=== PATIENT | female | born 1990 | race Asian ===

== ENCOUNTER 2020-03-22 01:47 | Inpatient (IN) | payer OTHER ==
[2020-03-22] MEDS ORDERED: ePHEDrine 50 MG/ML SDV IVPUSH PRN (20:22)
[2020-03-22] MEDS ORDERED: Bupivacaine/fentaNYL/NS 100 ML Bag EPIDUR PRN (20:22)
[2020-03-22] MEDS ORDERED: Misoprostol 25 MCG (1/4 of 100 MCG) Tab ONE (20:22)
[2020-03-22] MEDS ORDERED: fentaNYL 100 MCG/2 ML SDV EPIDUR PRN (20:22)
[2020-03-22] MEDS ORDERED: diphenhydrAMINE 50 MG/ML SDV IVPUSH PRN (20:22)
[2020-03-22] MEDS ORDERED: Sodium Chloride 0.9% 10 ML Syringe FLUSH PRN (20:37)
[2020-03-22] MEDS ORDERED: Nalbuphine 10 MG/ML Syringe IVPUSH PRN (20:37)
[2020-03-22] MEDS ORDERED: Ondansetron 4 MG/2 ML SDV IVPUSH PRN (20:37)
[2020-03-22] MEDS ORDERED: Misoprostol 100 MCG Tab VAG PRN (20:37)
--- NOTE | 2020-03-22 20:40 | PCM.LDHP ---
L&D History of Present Illness - General Date of Service: 03/22/20 Admit Problem/Dx: Patient Status Order with Admit Dx/Problem 03/22/20 20:38 Patient Status [ADT] Routine Admission Diagnosis/Problem Admission Diagnosis/Problem Cholestasis during Source of Information: Patient History Limitations: Reports: No Limitations - History of Present Illness Introduction:: Patient is a 30 y/o G1 Po at 39 0/7 wks who presents for IOL for presumed cholestasis of . Seen in clinic earlier today for routine appt and no stephany itching present over the last few days on her palms and soles. No other changes in exposures. Otherwise doing well. Had LFT's drawn which were normal. Bile acids pending. Was advised to present for IOL given potential poor outcome for cholestasis. 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: 0 LMP (Approximate): Social & Family History - Tobacco Use Smoking Status *Q: Never Smoker - Alcohol Use Alcohol Use History: No - Recreational Drug Use Recreational Drug Use: No H&P Review of Systems - Review of Systems: Review Of Systems: See Below General: Reports: No Symptoms Pulmonary: Reports: No Symptoms Cardiovascular: Reports: No Symptoms Gastrointestinal: Reports: No Symptoms Genitourinary: Reports: No Symptoms Musculoskeletal: Reports: No Symptoms Psychiatric: Reports: No Symptoms Neurological: Reports: No Symptoms Review of Systems Comment:: Pruritus of palms / soles L&D Exam - Exam Exam: See Below - OB Specific Contraction Intensity: Irritability Movement: Active Heart Tones: Present Heart Tones per Min: 140 Heart Rate (FHR) Variability: Moderate (6-25 bmp) Presentation: Vertex - Pineda Score Pineda Score Cervix Position: Posterior Pineda Score Consistency: Soft Pineda Score Effacement: 51-70% Pineda Score Dilation: Closed (0.5) Pineda Score Infant's Station: -2 Pineda Score Total: 5 - Exam General: Alert, Oriented, Cooperative Lungs: Clear to Auscultation, Normal Respiratory Effort Cardiovascular: Regular Rate, Regular Rhythm GI/Abdominal Exam: Soft, Non-Tender Genitourinary: Normal external exam Extremities: Normal Inspection Skin: Warm, Dry, Intact - Patient Data Result Diagrams: 03/22/20 21:00 - Problem List (1) 39 weeks gestation of SNOMED Code(s): 36472700 ICD Code: Z3A.39 - 39 WEEKS GESTATION OF Status: Acute Current Visit: Yes (2) Solar pruritus SNOMED Code(s): 903035521 ICD Code: L29.9 - PRURITUS, UNSPECIFIED Status: Acute Current Visit: Yes Problem List Initiated/Reviewed/Updated: Yes Orders Last 24hrs: Active Orders 24 hr Category Date Time Status Patient Status [ADT] Routine ADT 03/22/20 20:38 Ordered Activity as Tolerated [RC] PFP Care 03/22/20 20:38 Ordered Communication Order [RC] ASDIRECTED Care 03/22/20 20:38 Ordered Communication Order [RC] ASDIRECTED Care 03/22/20 20:38 Ordered Communication Order [RC] ASDIRECTED Care 03/22/20 20:38 Ordered Heart Tones [RC] ASDIRECTED Care 03/22/20 20:38 Ordered Monitoring [RC] INTERMITTENT Care 03/22/20 20:38 Ordered Non Stress Test [RC] PER UNIT ROUTINE Care 03/22/20 20:38 Ordered Notify Provider [RC] ASDIRECTED Care 03/22/20 20:23 Active Notify Provider [RC] ASDIRECTED Care 03/22/20 20:38 Ordered Notify Provider [RC] PFP Care 03/22/20 20:38 Ordered Notify Provider [RC] PRN Care 03/22/20 20:38 Ordered Peripheral IV Care [RC] . DIRECTED Care 03/22/20 20:38 Ordered Up ad Chrystal [RC] ASDIRECTED Care 03/22/20 20:38 Ordered Vaginal Exam [RC] ASDIRECTED Care 03/22/20 20:38 Ordered Vital Signs [RC] ASDIRECTED Care 03/22/20 20:38 Ordered Regular Diet [DIET] Diet 03/22/20 Dinner Ordered CBC W/O DIFF,HEMOGRAM [HEME] Routine Lab 03/22/20 20:37 Ordered CORONAVIRUS COVID-19 MAUDE [MOLEC] Routine Lab 03/22/20 20:40 Ordered RAPID PLASMA REAGIN,RPR [CHEM] Routine Lab 03/22/20 20:38 Ordered TYPE AND SCREEN [BBK] Routine Lab 03/22/20 20:37 Ordered Bupivacaine/fentaNYL/NS [fentaNYL/Bupivacaine/NS 2 MCG- Med 03/22/20 20:22 Pending 0.125% 100 ML] 100 ml EPIDUR ASDIRECTED PRN Lactated Ringers [Ringers, Lactated] 1,000 ml Med 03/22/20 20:45 Ordered IV ASDIRECTED Nalbuphine [Nubain] Med 03/22/20 20:37 Ordered 10 mg IVPUSH Q2H PRN Ondansetron [Zofran] Med 03/22/20 20:37 Ordered 4 mg IVPUSH Q4H PRN Oxytocin/Lactated Ringers [Pitocin in LR 10 Units/1,000 Med 03/22/20 20:45 Ordered ML] 10 unit in 1,000 ml IV .CONTINUOUS Oxytocin/Lactated Ringers [Pitocin in LR 10 Units/1,000 Med 03/22/20 20:45 Ordered ML] 10 unit in 1,000 ml IV TITRATE Sodium Chloride 0.9% [Saline Flush] Med 03/22/20 20:37 Ordered 10 ml FLUSH ASDIRECTED PRN diphenhydrAMINE [Benadryl] Med 03/22/20 20:22 Ordered 25 mg IVPUSH Q6H PRN ePHEDrine [ePHEDrine sulfate] Med 03/22/20 20:22 Ordered 5 mg IVPUSH ASDIRECTED PRN fentaNYL [Sublimaze] Med 03/22/20 20:22 Ordered 100 mcg EPIDUR Q3H PRN miSOPROStoL [Cytotec] Med 03/22/20 20:37 Ordered 25 mcg VAG Q4H PRN Electronic Heart Tones Ext w TOCO [WOMSER] Oth 03/22/20 20:38 Ordered Routine Electronic Heart Tones Internal [WOMSER] Per Unit Oth 03/22/20 20:38 Ordered Routine Peripheral IV Insertion Adult [OM.PC] Routine Ot 03/22/20 20:38 Ordered Resuscitation Status Routine Resus Stat 03/22/20 20:37 Ordered Medication Orders Diphenhydramine HCl (Benadryl) 25 mg IVPUSH Q6H PRN PRN Reason: pruritis Ephedrine Sulfate (Ephedrine Sulfate) 5 mg IVPUSH ASDIRECTED PRN PRN Reason: Hypotension Fentanyl (Sublimaze) 100 mcg EPIDUR Q3H PRN PRN Reason: Pain Fentanyl/Bupivacaine HCl (Fentanyl/Bupivacaine/Ns 2 Mcg-0.125% 100 Ml) 100 ml EPIDUR ASDIRECTED PRN PRN Reason: Pain Assessment/Plan Comment:: * Bile acids pending * Labor labs to be drawn * Cytotec for IOL. Cruz bulb/pitocin when able * Pain management per patient preference * Anticipate
[2020-03-22] MEDS ORDERED: Oxytocin/Lactated Ringers 10 UNIT/1,000 ML BAG IV SCH (20:45)
[2020-03-22] MEDS ORDERED: Lactated Ringers 1,000 ML IV SCH (20:45)
[2020-03-23] MEDS ORDERED: Misoprostol 25 MCG (1/4 of 100 MCG) Tab ONE (00:28)
[2020-03-23] MEDS ORDERED: Zolpidem 5 MG Tab PO ONE (00:48)
[2020-03-23] MEDS ORDERED: Misoprostol 25 MCG (1/4 of 100 MCG) Tab VAG PRN (05:30)
--- NOTE | 2020-03-23 07:20 | PCM.PNLD ---
Labor Progress Note - VS & Meds Vital Signs: Last Vital Signs Temp 37.1 C 03/22/20 20:38 Pulse 108 H 03/22/20 20:38 Resp 14 03/22/20 20:38 BP 127/80 03/22/20 20:38 Pulse Ox 97 03/22/20 20:38 Active Medications: Current Medications Diphenhydramine HCl (Benadryl) 25 mg IVPUSH Q6H PRN PRN Reason: pruritis Ephedrine Sulfate (Ephedrine Sulfate) 5 mg IVPUSH ASDIRECTED PRN PRN Reason: Hypotension Fentanyl (Sublimaze) 100 mcg EPIDUR Q3H PRN PRN Reason: Pain Fentanyl/Bupivacaine HCl (Fentanyl/Bupivacaine/Ns 2 Mcg-0.125% 100 Ml) 100 ml EPIDUR ASDIRECTED PRN PRN Reason: Pain Lactated Ringer's (Ringers, Lactated) 1,000 mls @ 40 mls/hr IV ASDIRECTED XENA Oxytocin/Lactated Ringer's (Pitocin In Lr 10 Units/1,000 Ml) 10 unit in 1,000 mls @ 12 mls/hr IV TITRATE XENA; Protocol Oxytocin/Lactated Ringer's (Pitocin In Lr 10 Units/1,000 Ml) 10 unit in 1,000 mls @ 500 mls/hr IV .CONTINUOUS XENA Nalbuphine HCl (Nubain) 10 mg IVPUSH Q2H PRN PRN Reason: Pain Ondansetron HCl (Zofran) 4 mg IVPUSH Q4H PRN PRN Reason: Nausea/Vomiting Sodium Chloride (Saline Flush) 10 ml FLUSH ASDIRECTED PRN PRN Reason: Keep Vein Open Discontinued Medications Misoprostol (Cytotec) Confirm Administered Dose 25 mcg .ROUTE .STK-MED ONE Stop: 03/22/20 20:23 Last Admin: 03/22/20 20:30 Dose: 25 mcg Documented by: Misoprostol (Cytotec) 25 mcg VAG Q4H PRN PRN Reason: cervical ripening Misoprostol (Cytotec) Confirm Administered Dose 25 mcg .ROUTE .STK-MED ONE Stop: 03/23/20 00:29 Last Admin: 03/23/20 01:35 Dose: 25 mcg Documented by: Misoprostol (Cytotec) 25 mcg VAG Q4H PRN PRN Reason: cervical ripening Last Admin: 03/23/20 05:30 Dose: 25 mcg Documented by: Zolpidem Tartrate (Ambien) 5 mg PO ONETIME ONE Stop: 03/23/20 00:49 Last Admin: 03/23/20 00:58 Dose: 5 mg Documented by: - Uterine Contractions Uterine Monitoring Mode: External [place] Contraction Intensity: Irritability Uterine Resting Tone: Soft - Monitoring Monitor Mode: External Ultrasound Heart Rate (FHR) Baseline: 135 Heart Rate (FHR) Variability: Moderate (6-25 bmp) Accelerations: Present, 15x15 Decelerations: None Strip Review: Category I - Vaginal Exam Dilation (cm): 1 Effacement (Percent): 75 Station: -2 Cervical Position: Midposition - Labor Progress (Free Text) Labor Progress: S?p 3 doses of cytotec. Last at 0530. Cruz bulb placed at 0630. Will transition to pitocin at 0930.
[2020-03-23] MEDS: Oxytocin/Lactated Ringers 10 UNIT/1,000 ML BAG IV SCH (10:27)
--- NOTE | 2020-03-23 20:14 | PCM.PNLD ---
Labor Progress Note - VS & Meds Vital Signs: Last Vital Signs Temp 37.1 C 03/22/20 20:38 Pulse 108 H 03/22/20 20:38 Resp 14 03/22/20 20:38 BP 127/80 03/22/20 20:38 Pulse Ox 97 03/22/20 20:38 Active Medications: Current Medications Diphenhydramine HCl (Benadryl) 25 mg IVPUSH Q6H PRN PRN Reason: pruritis Ephedrine Sulfate (Ephedrine Sulfate) 5 mg IVPUSH ASDIRECTED PRN PRN Reason: Hypotension Fentanyl (Sublimaze) 100 mcg EPIDUR Q3H PRN PRN Reason: Pain Fentanyl/Bupivacaine HCl (Fentanyl/Bupivacaine/Ns 2 Mcg-0.125% 100 Ml) 100 ml EPIDUR ASDIRECTED PRN PRN Reason: Pain Lactated Ringer's (Ringers, Lactated) 1,000 mls @ 40 mls/hr IV ASDIRECTED XENA Last Admin: 03/23/20 10:27 Dose: 40 mls/hr Documented by: Oxytocin/Lactated Ringer's (Pitocin In Lr 10 Units/1,000 Ml) 10 unit in 1,000 mls @ 12 mls/hr IV TITRATE XENA; Protocol Last Titration: 03/23/20 18:00 Dose: 16 munits/min, 96 mls/hr Documented by: Oxytocin/Lactated Ringer's (Pitocin In Lr 10 Units/1,000 Ml) 10 unit in 1,000 mls @ 500 mls/hr IV .CONTINUOUS XENA Nalbuphine HCl (Nubain) 10 mg IVPUSH Q2H PRN PRN Reason: Pain Last Admin: 03/23/20 18:24 Dose: 10 mg Documented by: Ondansetron HCl (Zofran) 4 mg IVPUSH Q4H PRN PRN Reason: Nausea/Vomiting Sodium Chloride (Saline Flush) 10 ml FLUSH ASDIRECTED PRN PRN Reason: Keep Vein Open Discontinued Medications Misoprostol (Cytotec) Confirm Administered Dose 25 mcg .ROUTE .STK-MED ONE Stop: 03/22/20 20:23 Last Admin: 03/22/20 20:30 Dose: 25 mcg Documented by: Misoprostol (Cytotec) 25 mcg VAG Q4H PRN PRN Reason: cervical ripening Misoprostol (Cytotec) Confirm Administered Dose 25 mcg .ROUTE .STK-MED ONE Stop: 03/23/20 00:29 Last Admin: 03/23/20 01:35 Dose: 25 mcg Documented by: Misoprostol (Cytotec) 25 mcg VAG Q4H PRN PRN Reason: cervical ripening Last Admin: 03/23/20 05:30 Dose: 25 mcg Documented by: Zolpidem Tartrate (Ambien) 5 mg PO ONETIME ONE Stop: 03/23/20 00:49 Last Admin: 03/23/20 00:58 Dose: 5 mg Documented by: - Uterine Contractions Uterine Monitoring Mode: External [place] Contraction Intensity: Moderate to Strong Uterine Resting Tone: Soft - Monitoring Monitor Mode: External Ultrasound Heart Rate (FHR) Baseline: 120 Heart Rate (FHR) Variability: Moderate (6-25 bmp) Accelerations: Present, 15x15 Decelerations: None Strip Review: Category I - Vaginal Exam Dilation (cm): 7 Effacement (Percent): 90 Station: 0 Cervical Position: Anterior - Labor Progress (Free Text) Labor Progress: Doing well. Continues on Pitocin for augmentation. Continue current management
[2020-03-24] MEDS ORDERED: ceFAZolin 2 GM in Premix Bag 1 BAG IV ONE (01:09)
[2020-03-24] MEDS ORDERED: Citric Acid/Sodium Citrate Solution 30 ML Cup PO ONE (01:09)
[2020-03-24] MEDS ORDERED: Metoclopramide 10 MG/2 ML SDV IVPUSH ONE (01:09)
[2020-03-24] MEDS ORDERED: Azithromycin 500 MG in Sodium Chloride 0.9% 250 ML IV ONE (01:09)
[2020-03-24] MEDS ORDERED: Oxytocin 10 Units/1 ML SDV ONE (01:11)
[2020-03-24] MEDS ORDERED: ceFAZolin 1 GM Vial ONE (01:11)
[2020-03-24] MEDS ORDERED: Ondansetron 4 MG/2 ML SDV ONE (01:11)
[2020-03-24] MEDS ORDERED: Ketorolac 30 MG/ML SDV ONE (01:11)
[2020-03-24] MEDS ORDERED: Lactated Ringers 2,000 ML ONE (01:11)
--- NOTE | 2020-03-24 01:11 | PCM.SN.2 ---
- Free Text/Narrative Note: 0100 The patient was pushing in the dorsal lithotomy position. Sterile vaginal exam complete/complete/+2 station. head in CRYSTAL presentation. Maternal pushing effort was good and the pelvis was felt to be adequate for an instrument assisted delivery. Given maternal exhaustion the decision was made to proceed with vacuum assisted vaginal delivery. The mushroom cup was placed without difficulty with care to avoid the vaginal side daniel at 0054. Total pressure applied 550 mm Hg. One pop off occurred during 3rd push at 0058. Vacuum reapplied at 0101 and with next two contractions patient pushed, but with 2nd pop off at 0103. At this point decision had with patient about options and she did agree to PLTCS. Valarie Calabrese MD
[2020-03-24] MEDS ORDERED: Morphine PF 1 MG/ML Amp ONE (01:12)
[2020-03-24] MEDS ORDERED: fentaNYL 100 MCG/2 ML SDV ONE (01:46)
[2020-03-24] MEDS ORDERED: Methylergonovine 0.2 MG/1 ML Amp ONE (02:01)
[2020-03-24] MEDS ORDERED: Ondansetron 4 MG/2 ML SDV IVPUSH PRN (02:10)
[2020-03-24] MEDS ORDERED: fentaNYL 100 MCG/2 ML SDV IVPUSH PRN (02:10)
--- NOTE | 2020-03-24 02:17 | PCM.PREANE ---
Preanesthetic Assessment - Procedure Proposed Procedure: C Section - Anesthesia/Transfusion/Family Hx Anesthesia History: No Prior Anesthesia Family History of Anesthesia Reaction: No Transfusion History: No Prior Transfusion(s) - Review of Systems General: No Symptoms Pulmonary: No Symptoms Cardiovascular: No Symptoms Gastrointestinal: Other (Cholestasis/Itching ) Neurological: No Symptoms Other: Reports: None - Physical Assessment NPO Status Date: 03/23/20 NPO Status Time: 22:30 Vital Signs: Last Vital Signs Temp 37.1 C 03/22/20 20:38 Pulse 108 H 03/22/20 20:38 Resp 14 03/22/20 20:38 BP 127/80 03/22/20 20:38 Pulse Ox 97 03/22/20 20:38 03/24/2020 126/72 138 24 99% Height: 1.45 m Weight: 55.792 kg ASA Class: 2E Mental Status: Alert & Oriented x3 Airway Class: Mallampati = 1 Dentition: Reports: Normal Dentition (Braces) Thyro-Mental Finger Breadths: 3 Mouth Opening Finger Breadths: 3 ROM/Head Extension: Full Lungs: Clear to Auscultation, Normal Respiratory Effort Cardiovascular: Regular Rhythm, Tachycardia (130's) - Lab Values: Laboratory Last Values WBC 11.48 K/mm3 (3.98-10.04) H 03/22/20 21:00 RBC 4.45 M/mm3 (3.98-5.22) 03/22/20 21:00 Hgb 13.6 gm/dl (11.2-15.7) 03/22/20 21:00 Hct 41.1 % (34.1-44.9) 03/22/20 21:00 MCV 92.4 fl (79.4-94.8) 03/22/20 21:00 MCH 30.6 pg (25.6-32.2) 03/22/20 21:00 MCHC 33.1 g/dl (32.2-35.5) 03/22/20 21:00 RDW Std Deviation 44.6 fL (36.4-46.3) 03/22/20 21:00 Plt Count 311 K/mm3 (182-369) 03/22/20 21:00 MPV 9.6 fl (9.4-12.3) 03/22/20 21:00 RPR Non-reactive (NONREACTIVE) 03/22/20 21:00 COVID-19 (MAUDE) Negative (NEGATIVE) 03/22/20 21:00 Blood Type O POSITIVE 03/22/20 21:00 Gel Antibody Screen Negative 03/22/20 21:00 - Allergies Allergies/Adverse Reactions: Allergies Allergy/AdvReac Type Severity Reaction Status Date / Time No Known Allergies Allergy Verified 03/22/20 22:44 - Acknowledgements Anesthesia Type Planned: Spinal Pt an Appropriate Candidate for the Planned Anesthesia: Yes Alternatives and Risks of Anesthesia Discussed w Pt/Guardian: Yes Pt/Guardian Understands and Agrees with Anesthesia Plan: Yes PreAnesthesia Questionnaire - Past Health History Medical/Surgical History: Denies Medical/Surgical History HEENT History: Reports: None Gastrointestinal History: Reports: Cholelithiasis 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: - Past Surgical History GI Surgical History: Reports: None - SUBSTANCE USE Smoking Status *Q: Never Smoker Tobacco Use Within Last Twelve Months: No Second Hand Smoke Exposure: No Recreational Drug Use History: No - HOME MEDS Home Medications: Home Meds Vit No.78/Iron/Fa [Prenatabs FA] 1 tab PO DAILY 03/23/20 [History] - CURRENT (IN HOUSE) MEDS Current Meds: Current Medications Diphenhydramine HCl (Benadryl) 25 mg IVPUSH Q6H PRN PRN Reason: pruritis Ephedrine Sulfate (Ephedrine Sulfate) 5 mg IVPUSH ASDIRECTED PRN PRN Reason: Hypotension Fentanyl (Sublimaze) 100 mcg EPIDUR Q3H PRN PRN Reason: Pain Fentanyl/Bupivacaine HCl (Fentanyl/Bupivacaine/Ns 2 Mcg-0.125% 100 Ml) 100 ml EPIDUR ASDIRECTED PRN PRN Reason: Pain Lactated Ringer's (Ringers, Lactated) 1,000 mls @ 40 mls/hr IV ASDIRECTED XENA Last Admin: 03/23/20 10:27 Dose: 40 mls/hr Documented by: Oxytocin/Lactated Ringer's (Pitocin In Lr 10 Units/1,000 Ml) 10 unit in 1,000 mls @ 12 mls/hr IV TITRATE XENA; Protocol Last Titration: 03/23/20 18:00 Dose: 16 munits/min, 96 mls/hr Documented by: Oxytocin/Lactated Ringer's (Pitocin In Lr 10 Units/1,000 Ml) 10 unit in 1,000 mls @ 500 mls/hr IV .CONTINUOUS XENA Nalbuphine HCl (Nubain) 10 mg IVPUSH Q2H PRN PRN Reason: Pain Last Admin: 03/23/20 18:24 Dose: 10 mg Documented by: Ondansetron HCl (Zofran) 4 mg IVPUSH Q4H PRN PRN Reason: Nausea/Vomiting Sodium Chloride (Saline Flush) 10 ml FLUSH ASDIRECTED PRN PRN Reason: Keep Vein Open Discontinued Medications Cefazolin Sodium (Ancef) Confirm Administered Dose 2 gm .ROUTE .STK-MED ONE Stop: 03/24/20 01:12 Citric Acid/Sodium Citrate (Bicitra Solution) 30 ml PO ONETIME ONE Stop: 03/24/20 01:10 Fentanyl (Sublimaze) Confirm Administered Dose 100 mcg .ROUTE .STK-MED ONE Stop: 03/24/20 01:47 Cefazolin Sodium/Dextrose 2 gm (/ Premix) 50 mls @ 100 mls/hr IV ONETIME ONE Stop: 03/24/20 01:38 Azithromycin 500 mg/ Sodium (Chloride) 250 mls @ 250 mls/hr IV ONETIME ONE Stop: 03/24/20 02:08 Lactated Ringer's (Ringers, Lactated) Confirm Administered Dose 2,000 mls @ as directed .ROUTE .STK-MED ONE Stop: 03/24/20 01:12 Ketorolac Tromethamine (Toradol) Confirm Administered Dose 30 mg .ROUTE .STK-MED ONE Stop: 03/24/20 01:12 Methylergonovine Maleate (Methergine) Confirm Administered Dose 0.2 mg .ROUTE .STK-MED ONE Stop: 03/24/20 02:02 Metoclopramide HCl (Reglan) 10 mg IVPUSH ONETIME ONE Stop: 03/24/20 01:10 Miscellaneous Medication (Phenylephrine 1 Mg/10 Ml-Ns) Confirm Administered Dose 1 mg IV .STK-MED ONE Stop: 03/24/20 01:59 Misoprostol (Cytotec) Confirm Administered Dose 25 mcg .ROUTE .STK-MED ONE Stop: 03/22/20 20:23 Last Admin: 03/22/20 20:30 Dose: 25 mcg Documented by: Misoprostol (Cytotec) 25 mcg VAG Q4H PRN PRN Reason: cervical ripening Misoprostol (Cytotec) Confirm Administered Dose 25 mcg .ROUTE .STK-MED ONE Stop: 03/23/20 00:29 Last Admin: 03/23/20 01:35 Dose: 25 mcg Documented by: Misoprostol (Cytotec) 25 mcg VAG Q4H PRN PRN Reason: cervical ripening Last Admin: 03/23/20 05:30 Dose: 25 mcg Documented by: Morphine Sulfate (Duramorph Pf) Confirm Administered Dose 1 mg .ROUTE .STK-MED ONE Stop: 03/24/20 01:13 Ondansetron HCl (Zofran) Confirm Administered Dose 4 mg .ROUTE .STK-MED ONE Stop: 03/24/20 01:12 Oxytocin (Pitocin) Confirm Administered Dose 20 unit .ROUTE .STK-MED ONE Stop: 03/24/20 01:12 Zolpidem Tartrate (Ambien) 5 mg PO ONETIME ONE Stop: 03/23/20 00:49 Last Admin: 03/23/20 00:58 Dose: 5 mg Documented by:
--- NOTE | 2020-03-24 02:31 | PCM.POSTAN ---
POST ANESTHESIA ASSESSMENT - MENTAL STATUS Mental Status: Alert, Oriented - VITAL SIGNS Vital Signs: Last Vital Signs Temp 37.1 C 03/22/20 20:38 Pulse 108 H 03/22/20 20:38 Resp 14 03/22/20 20:38 BP 127/80 03/22/20 20:38 Pulse Ox 97 03/22/20 20:38 0222 160/65 117 17 99% 97.9F - RESPIRATORY Respiratory Status: Respiratory Rate WNL, Airway Patent, O2 Saturation Stable, Supplemental Oxygen - CARDIOVASCULAR CV Status: Blood Pressure Stable, Elevated Pulse Rate - GASTROINTESTINAL GI Status: No Symptoms - PAIN Pain Score: 0 - POST OP HYDRATION Hydration Status: Adequate & Stable
--- NOTE | 2020-03-24 02:31 | PCM.OPNOTE ---
- General Post-Op/Procedure Note Date of Surgery/Procedure: 03/24/20 Operative Procedure(s): Primary low transverse Findings: Weight of 7 lbs 0 oz, APGARS 9 & 9 Pre Op Diagnosis: 39 weeks. Solar pruritis - IOL for presumed cholestasis. FTD in 2nd stage. Failed VAVD Post-Op Diagnosis: Same Anesthesia Technique: Spinal Primary Surgeon: Valarie Calabrese Secondary Surgeon: Jyoti De La Torre Anesthesia Provider: Cori Tucker Reason [employer] [facility] Was Necessary: Speed, safety of procedure. Pathology: Cord blood collected. Placenta discarded. Fluid Replacement, Intraop: 1,800 Output, Urine Amount: 200 EBL in mLs: 1,000 Complications: None Condition: Good Free Text/Narrative:: The risks, benefits, indications, potential complications, and alternatives were explained to the patient and informed consent obtained. After induction of anesthesia, the patient was placed in a supine position and then draped and prepped in the usual sterile manner. A Pfannenstiel incision was made and carried down through the subcutaneous tissue to the fascia. Fascial incision was made and extended transversely. The fascia was from the underlying rectus tissue superiorly and inferiorly. The peritoneum was identified and entered. Peritoneal incision was extended longitudinally. The utero-vesical peritoneal reflection was incised transversely and the bladder flap was bluntly freed from the lower uterine segment. A low transverse uterine incision was made sharply with a scalpel and extended bluntly in a cephalocaudad direction. A baby boy was delivered from vertex presentation with APGARS as above. After the umbilical cord was clamped and cut cord blood was obtained for evaluation. The placenta was removed intact and appeared normal. The uterus was exteriorized and cleared of clots. The uterine outline, tubes and ovaries appeared normal. The uterine incision was closed with running locked sutures of 0 Vicryl. Hemostasis was obtained with a 2nd imbricating layer of 2-0 vicryl in addition to several interrupted sutures placed in figure of eight style. The uterus was then placed back into the abdomen. Given somewhat boggy tone patient given 0.2 mg IM Methergine. The infracolic gutters were cleared of blood clots. The fascia was then reapproximated with running sutures of 0 Vicryl. The subc utaneous tissue was irrigated with sterile warm normal saline, hemostasis obtained with cautery. This layer was also closed with a running 0 Vicryl. The skin was reapproximated with running Subcuticular 4-0 monocryl sutures. Instrument, sponge, and needle counts were correct prior the abdominal closure and at the conclusion of the case.
[2020-03-24] MEDS ORDERED: Ondansetron 4 MG/2 ML SDV IV PRN (04:21)
[2020-03-24] MEDS ORDERED: Dextrose 5%-Lactated Ringers 1,000 ML IV SCH (04:21)
[2020-03-24] MEDS ORDERED: Acetaminophen/oxyCODONE 325-5 MG Tab PO PRN (04:21)
[2020-03-24] MEDS ORDERED: diphenhydrAMINE 50 MG/ML SDV IVPUSH PRN (04:21)
[2020-03-24] MEDS: Oxytocin/Lactated Ringers 10 UNIT/1,000 ML BAG IV SCH (05:08)
[2020-03-24] MEDS: Ketorolac 30 MG/ML SDV IVPUSH SCH ×3 (08:00→20:16)
--- NOTE | 2020-03-24 09:02 | PCM48HPAN ---
Post Anesthesia Note - EVALUATION WITHIN 48HRS OF ANESTHETIC Vital Signs in Normal Range: Yes Patient Participated in Evaluation: Yes Respiratory Function Stable: Yes Airway Patent: Yes Cardiovascular Function Stable: Yes Hydration Status Stable: Yes Pain Control Satisfactory: Yes Nausea and Vomiting Control Satisfactory: Yes Mental Status Recovered: Yes Vital Signs: Last Vital Signs Temp 36.8 C 03/24/20 06:00 Pulse 122 H 03/24/20 06:01 Resp 14 03/24/20 07:00 BP 105/53 L 03/24/20 06:01 Pulse Ox 99 03/24/20 07:00
[2020-03-24] MEDS: diphenhydrAMINE 50 MG/ML SDV IVPUSH PRN ×2 (12:37→22:23)
[2020-03-24] MEDS: Simethicone 80 MG Tab.Chew PO PRN ×2 (16:04→20:15)
[2020-03-24] MEDS: Docusate Sodium 100 MG Cap PO PRN (20:18)
[2020-03-25] MEDS: Ibuprofen 600 MG Tab PO PRN ×3 (02:25→17:29)
[2020-03-25] MEDS: Acetaminophen/oxyCODONE 325-5 MG Tab PO PRN ×3 (05:52→23:03)
[2020-03-25] MEDS: Simethicone 80 MG Tab.Chew PO PRN ×3 (05:54→17:29)
[2020-03-25] MEDS: Docusate Sodium 100 MG Cap PO PRN (09:30)
--- NOTE | 2020-03-25 10:59 | PCM.SN.2 ---
- Free Text/Narrative Note: Afebrile, chest clear no abnormal sounds. Cardiovascular examination normal. Uterus involuting normally. Incision appears normal no leg cramping no heavy vaginal bleeding.
[2020-03-26] MEDS: Ibuprofen 600 MG Tab PO PRN ×2 (01:04→20:16)
[2020-03-26] MEDS: Docusate Sodium 100 MG Cap PO PRN ×2 (08:10→20:18)
[2020-03-26] MEDS: Simethicone 80 MG Tab.Chew PO PRN (08:10)
[2020-03-26] MEDS: Acetaminophen/oxyCODONE 325-5 MG Tab PO PRN ×2 (08:11→20:18)
--- NOTE | 2020-03-26 10:37 | PCM.SN.2 ---
- Free Text/Narrative Note: Postop day 2. Afebrile, chest clear, cardiovascular exam normal. Abdomen soft. Uterus involuting normally. Incision appears normal. No heavy vaginal bleeding. No leg cramping. Probably home tomorrow. Baby is under bili lights at present time.
[2020-03-27] MEDS: Acetaminophen/oxyCODONE 325-5 MG Tab PO PRN (05:56)
[2020-03-27] MEDS: Ibuprofen 600 MG Tab PO PRN (05:56)
[2020-03-27] MEDS: Simethicone 80 MG Tab.Chew PO PRN (10:09)
[2020-03-27] MEDS: Docusate Sodium 100 MG Cap PO PRN (10:09)
--- NOTE | 2020-03-27 10:55 | PCM.DCSUM1 ---
Discharge Summary - Hospital Course Free Text/Narrative:: [place] [facility] Post-Op/Procedure Note Patient Name: SHANNA MAYERS Date of : 88 Patient Status: Inpatient Attending Provider: Valarie Calabrese Date: 03/24/20 02:31 Initialization Date: 03/24/20 02:31 - General Post-Op/Procedure Note Date of Surgery/Procedure: 03/24/20 Operative Procedure(s): Primary low transverse Findings: Weight of 7 lbs 0 oz, APGARS 9 & 9 Pre Op Diagnosis: 39 weeks. Solar pruritis - IOL for presumed cholestasis. FTD in 2nd stage. Failed VAVD Post-Op Diagnosis: Same Anesthesia Technique: Spinal Primary Surgeon: Valarie Calabrese Secondary Surgeon: Jyoti De La Torre Anesthesia Provider: Cori Tucker Reason Body Service Team Member Was Necessary: Speed, safety of procedure. Pathology: Cord blood collected. Placenta discarded. Fluid Replacement, Intraop: 1,800 Output, Urine Amount: 200 EBL in mLs: 1,000 Complications: None Condition: Good Free Text/Narrative:: The risks, benefits, indications, potential complications, and alternatives were explained to the patient and informed consent obtained. After induction of anesthesia, the patient was placed in a supine position and then draped and prepped in the usual sterile manner. A Pfannenstiel incision was made and carried down through the subcutaneous tissue to the fascia. Fascial incision was made and extended transversely. The fascia was from the underlying rectus tissue superiorly and inferiorly. The peritoneum was identified and entered. Peritoneal incision was extended longitudinally. The utero-vesical peritoneal reflection was incised transversely and the bladder flap was bluntly freed from the lower uterine segment. A low transverse uterine incision was made sharply with a scalpel and extended bluntly in a cephalocaudad direction. A baby boy was delivered from vertex presentation with APGARS as above. After the umbilical cord was clamped and cut cord blood was obtained for evaluation. The placenta was removed intact and appeared normal. The uterus was exteriorized and cleared of clots. The uterine outline, tubes and ovaries appeared normal. The uterine incision was closed with running locked sutures of 0 Vicryl. Hemostasis was obtained with a 2nd imbricating layer of 2-0 vicryl in addition to several interrupted sutures placed in figure of eight style. The uterus was then placed back into the abdomen. Given somewhat boggy tone patient given 0.2 mg IM Methergine. The infracolic gutters were cleared of blood clots. The fascia was then reapproximated with running sutures of 0 Vicryl. The subcutaneous tissue was irrigated with sterile warm normal saline, hemostasis obtained with cautery. This layer was also closed with a running 0 Vicryl. The skin was reapproximated with running Subcuticular 4-0 monocryl sutures. Instrument, sponge, and needle counts were correct prior the abdominal closure and at the conclusion of the case. HPI Initial Comments: [place] [facility] Post-Op/Procedure Note Patient Name: SHANNA MAYERS Date of : 88 Patient Status: Inpatient Attending Provider: Valarie Calabrese Date: 03/24/20 02:31 Initialization Date: 03/24/20 02:31 - General Post-Op/Procedure Note Date of Surgery/Procedure: 03/24/20 Operative Procedure(s): Primary low transverse Findings: Weight of 7 lbs 0 oz, APGARS 9 & 9 Pre Op Diagnosis: 39 weeks. Solar pruritis - IOL for presumed cholestasis. FTD in 2nd stage. Failed VAVD Post-Op Diagnosis: Same Anesthesia Technique: Spinal Primary Surgeon: Valarie Calabrese Secondary Surgeon: Jyoti De La Torre Anesthesia Provider: Cori Tucker Reason Body Service Team Member Was Necessary: Speed, safety of procedure. Pathology: Cord blood collected. Placenta discarded. Fluid Replacement, Intraop: 1,800 Output, Urine Amount: 200 EBL in mLs: 1,000 Complications: None Condition: Good Free Text/Narrative:: The risks, benefits, indications, potential complications, and alternatives were explained to the patient and informed consent obtained. After induction of anesthesia, the patient was placed in a supine position and then draped and prepped in the usual sterile manner. A Pfannenstiel incision was made and carried down through the subcutaneous tissue to the fascia. Fascial incision was made and extended transversely. The fascia was from the underlying rectus tissue superiorly and inferiorly. The peritoneum was identified and entered. Peritoneal incision was extended longitudinally. The utero-vesical peritoneal reflection was incised transversely and the bladder flap was bluntly freed from the lower uterine segment. A low transverse uterine incision was made sharply with a scalpel and extended bluntly in a cephalocaudad direction. A baby boy was delivered from vertex presentation with APGARS as above. After the umbilical cord was clamped and cut cord blood was obtained for evaluation. The placenta was removed intact and appeared normal. The uterus was exteriorized and cleared of clots. The uterine outline, tubes and ovaries appeared normal. The uterine incision was closed with running locked sutures of 0 Vicryl. Hemostasis was obtained with a 2nd imbricating layer of 2-0 vicryl in addition to several interrupted sutures placed in figure of eight style. The uterus was then placed back into the abdomen. Given somewhat boggy tone patient given 0.2 mg IM Methergine. The infracolic gutters were cleared of blood clots. The fascia was then reapproximated with running sutures of 0 Vicryl. The subcutaneous tissue was irrigated with sterile warm normal saline, hemostasis obtained with cautery. This layer was also closed with a running 0 Vicryl. The skin was reapproximated with running Subcuticular 4-0 monocryl sutures. Instrument, sponge, and needle counts were correct prior the abdominal closure and at the conclusion of the case. Brief History: [facility] . Post-Op/Procedure Note. Patient Name: SHANNA MAYERS [facility] Record Number: [id number]. Date of : 88Patient Status: Inpatient. Attending Provider: Valarie Calabrese CAccount Number: [id number]. Date: 03/24/20 02:31Initialization Date: 03/24/20 02:31. - General Post-Op/Procedure Note. Date of Surgery/Procedure: 03/24/20. Operative Procedure(s): Primary low transverse . Findings: Weight of 7 lbs 0 oz, APGARS 9 & 9. Pre Op Diagnosis: 39 weeks. Solar pruritis - IOL for presumed cholestasis. FTD in 2nd stage. Failed VAVD. Post-Op Diagnosis: Same. Anesthesia Technique: Spinal. Primary Surgeon: Valarie Calabrese. Secondary Surgeon: Jyoti De La Torre. Anesthesia Provider: Cori Tucker. Reason Body Service Team Member Was Necessary: Speed, safety of procedure. Pathology: Cord blood collected. Placenta discarded. Fluid Replacement, Intraop: 1,800. Output, Urine Amount: 200. EBL in mLs: 1,000. Complications: None. Condition: Good. Free Text/Narrative:: The risks, benefits, indications, potential complications, and alternatives were explained to the patient and informed consent obtained. After induction of anesthesia, the patient was placed in a supine position and then draped and prepped in the usual sterile manner. A Pfannenstiel incision was made and carried down through the subcutaneous tissue to the fascia. Fascial incision was made and extended transversely. The fascia was from the underlying rectus tissue superiorly and inferiorly. The peritoneum was identified and entered. Peritoneal incision was extended longitudinally. The utero-vesical peritoneal reflection was incised transversely and the bladder flap was bluntly freed from the lower uterine segment. A low transverse uterine incision was made sharply with a scalpel and extended bluntly in a cephalocaudad direction. A baby boy was delivered from vertex presentation with APGARS as above. After the umbilical cord was clamped and cut cord blood was obtained for evaluation. The placenta was removed intact and appeared normal. The uterus was exteriorized and cleared of clots. The uterine outline, tubes and ovaries appeared normal. The uterine incision was closed with running locked sutures of 0 Vicryl. Hemostasis was obtained with a 2nd imbricating layer of 2-0 vicryl in addition to several interrupted sutures placed in figure of eight style. The uterus was then placed back into the abdomen. Given somewhat boggy tone patient given 0.2 mg IM Methergine. The infracolic gutters were cleared of blood clots. The fascia was then reapproximated with running sutures of 0 Vicryl. The subcutaneous tissue was irrigated with sterile warm normal saline, hemostasis obtained with cautery. This layer was also closed with a running 0 Vicryl. The skin was reapproximated with running Subcuticular 4-0 monocryl sutures. Instrument, sponge, and needle counts were correct prior the abdominal closure and at the conclusion of the case. Diagnosis: Stroke: No - Discharge Data Discharge Date: 03/27/20 Discharge Disposition: Home, Self-Care 01 Condition: Good - Referral to Home Health Primary Care Physician: Valarie Calabrese MD - Discharge Diagnosis/Problem(s) (1) Failure of descent in labor, delivered, current hospitalization SNOMED Code(s): 376125464, [id number] ICD Code: O62.2 - OTHER UTERINE INERTIA Status: Acute Current Visit: Yes - Patient Summary/Data Operative Procedure(s) Performed: Primary low transverse - Patient Instructions Diet: Usual Diet as Tolerated Driving: Do Not Drive (X2 weeks or for 48 hours at the lowest dose of Percocet) Showering/Bathing: May Shower, No Tub Bathing/Swimming (6 weeks) Wound/Incision Care: Keep Operative Site/Wound Site Clean and Dry Notify Provider of: Fever, Increased Pain, Swelling and Redness, Drainage, Nausea and/or Vomiting - Discharge Plan *PRESCRIPTION DRUG MONITORING PROGRAM REVIEWED*: Yes *COPY OF PRESCRIPTION DRUG MONITORING REPORT IN PATIENT NICOLASA: Yes Prescriptions/Med Rec: Docusate Sodium [Colace Clear] 50 mg PO BID #50 capsule Acetaminophen/oxyCODONE [Percocet 325-5 MG] 1 tab PO Q6H PRN #20 tablet PRN Reason: Pain (Moderate 4-6) Home Medications: Home Meds Vit No.78/Iron/Fa [Prenatabs FA] 1 tab PO DAILY 03/23/20 [History] Acetaminophen/oxyCODONE [Percocet 325-5 MG] 1 tab PO Q6H PRN #20 tablet 03/27/20 [Rx] Docusate Sodium [Colace Clear] 50 mg PO BID #50 capsule 03/27/20 [Rx] Ibuprofen [Motrin] 600 mg PO Q6H PRN tablet 03/27/20 [Rx] Referrals: Valarie Calabrese MD [Primary Care Provider] - (To call for follow-up appointment to see Dr. Calabrese) - Discharge Summary/Plan Comment DC Time >30 min.: No - Patient Data Vitals - Most Recent: Last Vital Signs Temp 98.4 F 03/27/20 08:54 Pulse 98 03/27/20 08:54 Resp 14 03/27/20 08:54 BP 120/80 03/27/20 08:54 Pulse Ox 99 03/27/20 08:54 Weight - Most Recent: 123 lb Med Orders - Current: Current Medications Diphenhydramine HCl (Benadryl) 25 mg IVPUSH Q6H PRN PRN Reason: Pruritis Last Admin: 03/24/20 22:23 Dose: 25 mg Documented by: Diphenhydramine HCl (Benadryl) 25 mg IVPUSH Q6H PRN PRN Reason: Itching or Nausea Docusate Sodium (Colace) 100 mg PO Q12H PRN PRN Reason: Constipation Last Admin: 03/27/20 10:09 Dose: 100 mg Documented by: Fentanyl (Sublimaze) 50 mcg IVPUSH Q5M PRN PRN Reason: Pain Ibuprofen (Motrin) 600 mg PO Q6H PRN PRN Reason: mild pain or fever Last Admin: 03/27/20 05:56 Dose: 600 mg Documented by: Ondansetron HCl (Zofran) 4 mg IVPUSH ONETIME PRN PRN Reason: Nausea/Vomiting Ondansetron HCl (Zofran) 4 mg IV Q8H PRN PRN Reason: Nausea/Vomiting Oxycodone/Acetaminophen (Percocet 325-5 Mg) 1 tab PO Q4H PRN PRN Reason: Pain (moderate 4-6) Last Admin: 03/27/20 05:56 Dose: 1 tab Documented by: Oxycodone/Acetaminophen (Percocet 325-5 Mg) 2 tab PO Q4H PRN PRN Reason: Pain (severe 7-10) Simethicone (Simethicone) 80 mg PO Q4H PRN PRN Reason: Gas Last Admin: 03/27/20 10:09 Dose: 80 mg Documented by: Discontinued Medications Cefazolin Sodium (Ancef) Confirm Administered Dose 2 gm .ROUTE .STK-MED ONE Stop: 03/24/20 01:12 Citric Acid/Sodium Citrate (Bicitra Solution) 30 ml PO ONETIME ONE Stop: 03/24/20 01:10 Last Admin: 03/24/20 01:00 Dose: 30 ml Documented by: Diphenhydramine HCl (Benadryl) 25 mg IVPUSH Q6H PRN PRN Reason: pruritis Ephedrine Sulfate (Ephedrine Sulfate) 5 mg IVPUSH ASDIRECTED PRN PRN Reason: Hypotension Fentanyl (Sublimaze) 100 mcg EPIDUR Q3H PRN PRN Reason: Pain Fentanyl (Sublimaze) Confirm Administered Dose 100 mcg .ROUTE .STK-MED ONE Stop: 03/24/20 01:47 Fentanyl/Bupivacaine HCl (Fentanyl/Bupivacaine/Ns 2 Mcg-0.125% 100 Ml) 100 ml EPIDUR ASDIRECTED PRN PRN Reason: Pain Lactated Ringer's (Ringers, Lactated) 1,000 mls @ 40 mls/hr IV ASDIRECTED [facility] Last Admin: 03/23/20 10:27 Dose: 40 mls/hr Documented by: Oxytocin/Lactated Ringer's (Pitocin In Lr 10 Units/1,000 Ml) 10 unit in 1,000 mls @ 12 mls/hr IV TITRATE XENA; Protocol Last Admin: 03/24/20 05:08 Dose: 19 munits/min, 114 mls/hr Documented by: Oxytocin/Lactated Ringer's (Pitocin In Lr 10 Units/1,000 Ml) 10 unit in 1,000 mls @ 500 mls/hr IV .CONTINUOUS XENA Cefazolin Sodium/Dextrose 2 gm (/ Premix) 50 mls @ 100 mls/hr IV ONETIME ONE Stop: 03/24/20 01:38 Last Admin: 03/24/20 05:10 Dose: Not Given Documented by: Azithromycin 500 mg/ Sodium (Chloride) 250 mls @ 250 mls/hr IV ONETIME ONE Stop: 03/24/20 02:08 Last Admin: 03/24/20 05:01 Dose: 250 mls/hr Documented by: Lactated Ringer's (Ringers, Lactated) Confirm Administered Dose 2,000 mls @ as directed .ROUTE .STK-MED ONE Stop: 03/24/20 01:12 Dextrose/Lactated Ringer's (Dextrose 5%-Lactated Ringers) 1,000 mls @ 125 mls/hr IV ASDIRECTED XENA Stop: 03/24/20 12:20 Last Admin: 03/24/20 07:59 Dose: 125 mls/hr Documented by: Ketorolac Tromethamine (Toradol) Confirm Administered Dose 30 mg .ROUTE .STK-MED ONE Stop: 03/24/20 01:12 Ketorolac Tromethamine (Toradol) 30 mg IVPUSH Q6H [facility] Stop: 03/24/20 20:01 Last Admin: 03/24/20 20:16 Dose: 30 mg Documented by: Methylergonovine Maleate (Methergine) Confirm Administered Dose 0.2 mg .ROUTE .STK-MED ONE Stop: 03/24/20 02:02 Metoclopramide HCl (Reglan) 10 mg IVPUSH ONETIME ONE Stop: 03/24/20 01:10 Last Admin: 03/24/20 05:10 Dose: 10 mg Documented by: Miscellaneous Medication (Phenylephrine 1 Mg/10 Ml-Ns) Confirm Administered Dose 1 mg IV .STK-MED ONE Stop: 03/24/20 01:59 Misoprostol (Cytotec) Confirm Administered Dose 25 mcg .ROUTE .STK-MED ONE Stop: 03/22/20 20:23 Last Admin: 03/22/20 20:30 Dose: 25 mcg Documented by: Misoprostol (Cytotec) 25 mcg VAG Q4H PRN PRN Reason: cervical ripening Misoprostol (Cytotec) Confirm Administered Dose 25 mcg .ROUTE .STK-MED ONE Stop: 03/23/20 00:29 Last Admin: 03/23/20 01:35 Dose: 25 mcg Documented by: Misoprostol (Cytotec) 25 mcg VAG Q4H PRN PRN Reason: cervical ripening Last Admin: 03/23/20 05:30 Dose: 25 mcg Documented by: Morphine Sulfate (Duramorph Pf) Confirm Administered Dose 1 mg .ROUTE .STK-MED ONE Stop: 03/24/20 01:13 Nalbuphine HCl (Nubain) 10 mg IVPUSH Q2H PRN PRN Reason: Pain Last Admin: 03/23/20 18:24 Dose: 10 mg Documented by: Ondansetron HCl (Zofran) 4 mg IVPUSH Q4H PRN PRN Reason: Nausea/Vomiting Ondansetron HCl (Zofran) Confirm Administered Dose 4 mg .ROUTE .STK-MED ONE Stop: 03/24/20 01:12 Oxytocin (Pitocin) Confirm Administered Dose 20 unit .ROUTE .STK-MED ONE Stop: 03/24/20 01:12 Sodium Chloride (Saline Flush) 10 ml FLUSH ASDIRECTED PRN PRN Reason: Keep Vein Open Zolpidem Tartrate (Ambien) 5 mg PO ONETIME ONE Stop: 03/23/20 00:49 Last Admin: 03/23/20 00:58 Dose: 5 mg Documented by:
== END 2020-03-27 11:53 | disposition home or self-care (01) | DRG 786 ==
LOC: JD.OB 01:47 → OBSVTOIN 03-24 01:47 → JD.OB 03-24 01:48
PROVIDERS: ADMIT Obstetrics & Gynecology; ATTEND Obstetrics & Gynecology
PROC: 10D00Z1 Extraction of Products of Conception, Low, Open Approach (ICD-10-PCS; principal; 2020-03-24)
DX: O26.62 Liver and biliary tract disorders in childbirth (principal); K83.1 Obstruction of bile duct; O62.1 Secondary uterine inertia; Z3A.39 39 weeks gestation of pregnancy; Z37.0 Single live birth; Z20.828 Contact with and (suspected) exposure to other viral communicable diseases; O26.893 Other specified pregnancy related conditions, third trimester; L29.8 Other pruritus
CPT/HCPCS: 01961; 36415; 51701; 51702; 59025; 85027; 86592; 86850; 86900; 86901; A9270-GY; J0456; J0690; J1200; J1885; J2210; J2274; J2300; J2370; J2405; J2590; J2765; J3010; J7050; J7120; J7121; U0002